=== PATIENT | male | born 1965 | race Caucasian/White ===

== ENCOUNTER 2022-06-05 14:16 | Emergency (ER) | payer OTHER, SELFPAY ==
[2022-06-05 14:17] VITALS: BP 131/98; PULSE 98; RESP 16; TEMP 36.6; O2SAT 99; BMI 43.2
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
== END 2022-06-05 16:11 | disposition home or self-care (01) ==
PROVIDERS: Emergency Provider Emergency Medicine; PCP Family Medicine; Visit Provider Emergency Medicine
DX: S96.912A Strain of unspecified muscle and tendon at ankle and foot level, left foot, initial encounter (principal); S39.012A Strain of muscle, fascia and tendon of lower back, initial encounter; S80.02XA Contusion of left knee, initial encounter; S50.811A Abrasion of right forearm, initial encounter; V64.5XXA Driver of heavy transport vehicle injured in collision with heavy transport vehicle or bus in traffic accident, initial encounter; Y93.89 Activity, other specified; Y99.0 Civilian activity done for income or pay
CPT/HCPCS: 72100; 73564; 73610; 99284